=== PATIENT | female | born 1930 | race Caucasian/White ===

== ENCOUNTER 2018-11-20 11:30 | Inpatient (IN) | payer MEDICARE, OTHER ==
[~2018-11-20] VITALS: Ht 152.4 cm; Wt 62.3 kg
[~2018-11-20 11:30] MED LIST: AMARYL2 MG PO; AMIODARONE HCL200 MG PO; FOSINOPRIL SODI10 MG PO; LIPITOR20 MG PO; LISINOPRIL10 MG PO; METOPROLOL SUCC25 MG PO; MONOPRIL PO
--- OUTSIDE RECORDS SUMMARY | 2018-11-20 11:35 | XMS REPORT | Clinical Summary ---
Author Author [employer] [facility] [employer] [facility] Address Unknown Phone Unavailable Care Team Providers Care Butter Maker Name Role Phone Maico Means PCP Allergies Comments Active Allergy Reactions Severity Noted Date Penicillins 11/19/2018 Medications End Date Status Medication Sig Dispensed Refills Start Date Active acetaminophen-codeine Take 1 tablet 15 tablet 0 (TYLENOL #3) 300-30 mg by mouth 9 per tablet every 6 (six) hours as needed for Pain. Max Daily Amount: 4 tablets Active Problems Problem Noted Date Closed fracture of multiple pubic rami 11/19/2018 Encounters Care Team Description Date Type Specialty Tevin Mims DO Alipui Van Lare, Celestine, MD Closed fracture of multiple rami of left pubis, sequela (Primary Dx); Fall, initial encounter; Pain 11/19/2018 Emergency Emergency Medicine after 11/19/2017 Social History Date Tobacco Use Types Packs/Day Years Used Never Smoker Smokeless Tobacco: Never Used Alcohol Use Drinks/Week oz/Week Comments Yes 1 Glasses of 0.6 wine Alcohol Habits Answer Date Recorded How often do you have a drink containing alcohol? Never 11/19/2018 How many drinks containing alcohol do you have on Not asked a typical day when you are drinking? How often do you have six or more drinks on one Not asked occasion? Sex Assigned at Date Recorded Not on file Industry Job Start Date Occupation Not on file Not on file Not on file Travel End Travel History Travel Start No recent travel history available. Last Filed Vital Signs Time Taken Vital Sign Reading 11/19/2018 12:26 PM CDT Blood Pressure 161/70 11/19/2018 12:26 PM CDT Pulse 83 11/19/2018 12:26 PM CDT Temperature 36.6 C (97.9 F) 11/19/2018 12:26 PM CDT Respiratory Rate 16 11/19/2018 12:26 PM CDT Oxygen Saturation 99% - Inhaled Oxygen - Concentration 11/19/2018 12:26 PM CDT Weight 59 kg (130 lb) 11/19/2018 12:26 PM CDT Height 152.4 cm (5') 11/19/2018 12:26 PM CDT Body Mass Index 25.39 Plan of Treatment Not on file Procedures Comments Procedure Name Priority Date/Time Associated Diagnosis CT PELVIS WITHOUT IV STAT 11/19/2018 CONTRAST 3:09 PM CDT XR HIP LEFT 2 VIEW STAT 11/19/2018 1:10 PM CDT after 11/19/2017 Results * CT pelvis without IV contrast (11/19/2018 3:09 PM CDT) Specimen Narrative Performed At FINAL REPORT [employer] CT of the pelvis dated to November 19, 2018 CLINICAL INFORMATION: Fall Comment: Axial images of the pelvis were obtained from the abdomen to the proximal thigh without GI or intravenous contrast. There is minimally displaced fracture involving the left superior pubic ramus extending to to the pubic symphysis. Nondisplaced fracture is also seen in the inferior left pubic ramus. Hematoma is seen in the left pelvis just lateral to the urinary bladder measuring approximately 1.7 x 4 cm. The left femoroacetabular joint is well maintained. Uterus is atrophic. Calcified mass is seen in the left pelvis measuring approximately 2.9 x 5.9 cm suggestive of adenopathy. A 2.2 x 2.7 cm lymph node is seen in the right pelvic sidewall. Atherosclerotic calcification seen in the abdominal aorta and bilateral iliac arteries. Adenopathy is seen in the distal periaortic retroperitoneum measuring up to 1.6 x 2.5 cm. IMPRESSION: 1. Fracture of the left inferior and superior pubic rami. The left superior pubic ramus fracture extending to the left pubic symphysis. 2. Hematoma in the left pelvis adjacent to the left superior and mass fracture. 3. Adenopathy in the pelvis and periaortic retroperitoneum. Signed: Mona Barnes MD Report Verified Date/Time:11/19/2018 16:05:40 Reading Location: [facility] B1 C013Y CT Body Reading Room Procedure Note Interface, External Ris In - 11/19/2018 4:07 PM CDT FINAL REPORT CT of the pelvis dated to November 19, 2018 CLINICAL INFORMATION: Fall Comment: Axial images of the pelvis were obtained from the abdomen to the proximal thigh without GI or intravenous contrast. There is minimally displaced fracture involving the left superior pubic ramus extending to to the pubic symphysis. Nondisplaced fracture is also seen in the inferior left pubic ramus. Hematoma is seen in the left pelvis just lateral to the urinary bladder measuring approximately 1.7 x 4 cm. The left femoroacetabular joint is well maintained. Uterus is atrophic. Calcified mass is seen in the left pelvis measuring approximately 2.9 x 5.9 cm suggestive of adenopathy. A 2.2 x 2.7 cm lymph node is seen in the right pelvic sidewall. Atherosclerotic calcification seen in the abdominal aorta and bilateral iliac arteries. Adenopathy is seen in the distal periaortic retroperitoneum measuring up to 1.6 x 2.5 cm. IMPRESSION: 1. Fracture of the left inferior and superior pubic rami. The left superior pubic ramus fracture extending to the left pubic symphysis. 2. Hematoma in the left pelvis adjacent to the left superior and mass fracture. 3. Adenopathy in the pelvis and periaortic retroperitoneum. Signed: Mona Barnes MD Report Verified Date/Time: 11/19/2018 16:05:40 Reading Location: [facility] C013Y CT Body Reading Room Performing Organization Address City/State/Zipcode Phone Number [phone] RIS * XR hip 2 views left (11/19/2018 1:10 PM CDT) Specimen Narrative Performed At FINAL REPORT [employer] Left hip dated 11/19/2018 Clinical Information: FALL left hip pain Comment: 2 views of the left hip were submitted for interpretation. No fracture, dislocation, or subluxation seen in the left hip. Femoral acetabular joint is well maintained. Soft tissue of the left hip is unremarkable. Curvilinear lucency is seen in the inferior left superior and inferior pubic rami for nondisplaced fracture. Impression: 1. No fracture in the left hip. 2. Findings suspicious for left superior and inferior pubic rami fracture. Recommend clinical correlation or follow-up with the CT examination. Signed: Mona Barnes MD Report Verified Date/Time:11/19/2018 14:41:42 Reading Location: [facility] C013Y CT Body Reading Room Procedure Note Interface, External Ris In - 11/19/2018 2:43 PM CDT FINAL REPORT Left hip dated 11/19/2018 Clinical Information: FALL left hip pain Comment: 2 views of the left hip were submitted for interpretation. No fracture, dislocation, or subluxation seen in the left hip. Femoral acetabular joint is well maintained. Soft tissue of the left hip is unremarkable. Curvilinear lucency is seen in the inferior left superior and inferior pubic rami for nondisplaced fracture. Impression: 1. No fracture in the left hip. 2. Findings suspicious for left superior and inferior pubic rami fracture. Recommend clinical correlation or follow-up with the CT examination. Signed: Mona Barnes MD Report Verified Date/Time: 11/19/2018 14:41:42 Reading Location: [facility] C013Y CT Body Reading Room Performing Organization Address City/State/Zipcode Phone Number RIS after 11/19/2017 Insurance Payer Benefit Subscriber ID Type Phone Address Plan / Group MEDICARE MEDICARE A xxxxxxxxxx Medicare B AETNA - MGD CARE AETNA xxxxxxxxxx Comm INDEMNITY NON CONTR
--- OUTSIDE RECORDS SUMMARY | 2018-11-20 11:35 | XMS REPORT ---
Author Author [facility] Address Unknown Phone Unavailable Care Team Providers Care Checker Cashier Name Role Phone Unavailable Unavailable Problems This patient has no known problems. Allergies, Adverse Reactions, Alerts This patient has no known allergies or adverse reactions. Medications This patient has no known medications. Results Test Description Test Time Test Comments Text Results Atomic Results Result Comments CT, PELVIS, WO CONTRAST 2018-11-19 16:05:00 Reason for exam:->FALLReason for exam:- >suspected occult fracute left hip painWhat is the patient's sedation requirement?->No Sedation FINAL REPORT CT of the pelvis dated [...] measuring up to 1.6 x 2.5 cm. IMPRESSION:1. Fracture of the left inferior and superior pubic rami. The left superior pubic ramus fracture extending to the left pubic symphysis.2. Hematoma in the left pelvis adjacent to the left superior and mass fracture.3. Adenopathy in the pelvis and periaortic retroperitoneum. Signed: Mona Barneseport Verified Date/Time: 11/19/2018 16:05:40 Reading Location: [facility] B1 C013Y CT Body Reading Room , HIP, 2 VIEWS, LEFT 2018-11-19 14:41:00 Reason for exam:->FALLReason for exam:- >left hip pain FINAL REPORT Left hip dated 11/19/2018 Clinical Information: FALLleft hip pain Comment: 2 views of the left hip were submitted for interpretation. No fracture, dislocation, or subluxation seen in the left hip. Femoral acetabular joint is well maintained. Soft tissue of the left hip is unremarkable. Curvilinear lucency is seen in the inferior left superior and inferior pubic rami for nondisplaced fracture. Impression:1. No fracture in the left hip.2. Findings suspicious for left superior and inferior pubic rami fracture. Recommend clinical correlation or follow-up with the CT examination. Signed: Mona Barnes MDReport Verified Date/Time: 11/19/2018 14:41:42 Reading Location: [facility] B1 C013Y CT Body Reading Room
[2018-11-20] MEDS ORDERED: DEXTROSE 50% SYRINGE 50 ML IV PRN (12:45)
[2018-11-20] MEDS ORDERED: MORPHINE SULFATE 2 MG/ML SYR 1ML IV PRN (12:45)
[2018-11-20] MEDS ORDERED: ONDANSETRON HCL INJ 2MG/ML 2ML 2 MG/ML VIAL IV PRN (12:45)
--- OUTSIDE RECORDS SUMMARY | 2018-11-20 13:02 | XMS REPORT | Clinical Summary ---
Author Author [facility] [employer] [facility] [employer] [facility] Address Unknown Phone Unavailable Care Team Providers Care Bottle Gauger Name Role Phone Maico Means PCP Allergies [...] CDT) Specimen Narrative Performed At FINAL REPORT [employer] CT of the pelvis dated to November [...] MD Report Verified Date/Time:11/19/2018 16:05:40 Reading Location: [facility] B1 C[facility] Body Reading Room Procedure [...] Report Verified Date/Time: 11/19/2018 16:05:40 Reading Location: [facility] C013Y CT Body Reading Room Performing Organization Address City/State/Zipcode Phone Number [employer] RIS * XR hip 2 views left (11/19/2018 1:10 PM CDT) Specimen Narrative Performed At FINAL REPORT [employer] Left hip dated 11/19/2018 Clinical Information: FALL [...] MD Report Verified Date/Time:11/19/2018 14:41:42 Reading Location: [facility] C013Y CT Body Reading Room Procedure Note [...] Report Verified Date/Time: 11/19/2018 14:41:42 Reading Location: [facility] C013Y CT Body Reading Room Performing Organization Address City/State/Zipcode Phone Number RIS after 11/19/2017 Insurance Payer Benefit Subscriber ID Type Phone Address Plan / Group MEDICARE MEDICARE A xxxxxxxxxx Medicare B AETNA - MGD CARE AETNA xxxxxxxxxx Comm INDEMNITY NON CONTR
[2018-11-20] MEDS ORDERED: MORPHINE SULFATE INJ 4 MG/ML INJ 1ML IV PRN (13:15)
[2018-11-20 13:19] LABS: BASOPHILS % 0.5 % (0.0-1.0); EOSINOPHILS % 0.5 % (0.0-6.0); HEMATOCRIT 28.2 % (34.2-44.1); HEMOGLOBIN 9.1 g/dL (12.0-16.0); LYMPHOCYTES # (AUTO) 1.3 (1.0-3.2); LYMPHOCYTES % 30.7 % (18.0-39.1); MEAN CORPUSCULAR HEMOGLOBIN 29.9 pg (28-32); MEAN CORPUSCULAR HGB CONC 32.3 g/dL (31-35); MEAN CORPUSCULAR VOLUME 92.8 fL (81-99); MONOCYTES # (AUTO) 0.5 (0.2-0.8); MONOCYTES % 10.3 % (4.4-11.3); NEUTROPHILS # (AUTO) 2.5 (2.1-6.9); NEUTROPHILS % 57.8 % (38.7-80.0); PLATELET COUNT 243 x10e3/uL (140-360); RED BLOOD COUNT 3.04 x10e6/uL (3.6-5.1); RED CELL DISTRIBUTION WIDTH 14.2 % (11.7-14.4)
[2018-11-20] MEDS ORDERED: LOW DOSE ASPIRI81 MG PO (13:24)
[2018-11-20] MEDS ORDERED: TYLENOL # 31 EA PO (13:24)
[2018-11-20 13:32] LABS: ALBUMIN/GLOBULIN RATIO 0.5 (0.8-2.0); ANION GAP 10.7 mmol/L (8-16); CALCIUM 9.7 mg/dL (8.4-10.2); CREATININE, SERUM 1.45 mg/dL (0.57-1.11); MAGNESIUM 1.7 MG/DL (1.3-2.1); POTASSIUM 4.7 mmol/L (3.5-5.1)
[2018-11-20 14:28] LABS: BILIRUBIN,URINE NEGATIVE (NEGATIVE); CLARITY,URINE CLEAR (CLEAR); COLOR,URINE YELLOW (YELLOW); KETONES,URINE NEGATIVE (NEGATIVE); LEUKOCYTE ESTERASE ,URINE TRACE (NEGATIVE); NITRITE,URINE NEGATIVE (NEGATIVE); PROTEIN,URINE DIPSTICK NEGATIVE (NEGATIVE); URINE UROBILINOGEN 0.2 mg/dL (0.2 - 1)
[2018-11-20 14:38] LABS: BACTERIA,URINE FEW /HPF; EPITHELIAL CELLS,URINE RARE /LPF; WBC,URINE (MAN) 0-5 /HPF (0-5)
[2018-11-20] MEDS: INSULIN LISPRO 100 UNIT/1 ML 3ML VIAL SQ SCH ×2 (16:22→21:00)
[2018-11-20 16:55] VITALS: BP 148/68
[2018-11-20] MEDS ORDERED: PNEUMOCOCCAL VACCINE POLYVALENT 23 MCG/0.5 ML VIAL IM SCH (17:27)
[2018-11-20 17:35] VITALS: BP 131/55
--- NOTE | 2018-11-20 19:00 | NUR ---
patient received awake, alert, lying quietly in bed. no c/o pain noted. patient repositioned for comfort. pm assessment complete. call perez placed within reach. patient instructed to call for assistance when needed.
--- NOTE | 2018-11-20 19:01 | NUR ---
CALLED ANSWERING SERVICE FOR [facility] TO VERIFY THAT HE WAS NOTIFIED FOR THE CONSULT, ANSWERING SERVICE STATED THAT THE PHYSICIAN SAW THE IN ER.
[2018-11-20 19:30] VITALS: BP 138/63
[2018-11-20 19:52] VITALS: BP 138/63
[2018-11-21] VITALS (8 sets, daily range): BP systolic 107–153; BP diastolic 53–68
--- NOTE | 2018-11-21 | NUR ---
patient able to turn and reposition herself. no c/o pain noted. purewhick remains in place.
[2018-11-21] MEDS: ACETAMINOPHEN 325 MG TAB PO PRN ×2 (04:00→22:58)
--- NOTE | 2018-11-21 04:00 | NUR ---
patient medicated with tylenol 650 mg po for c/o mild pain to left hip at this time.
[2018-11-21] MEDS ORDERED: ACETAMINOPHEN/CODEINE 300MG - 30MG TAB PO PRN (04:45)
--- NOTE | 2018-11-21 07:14 | NUR ---
pt alert resp even and unlabored at this time no distress noted, pt able to make needs known, no concerns voiced at this time, call light in reach.
[2018-11-21] MEDS: INSULIN LISPRO 100 UNIT/1 ML 3ML VIAL SQ SCH ×4 (07:30→20:14)
[2018-11-21] MEDS ORDERED: ASPIRIN 325 MG TAB PO SCH (09:00)
[2018-11-21] MEDS: ATORVASTATIN 20 MG TAB PO SCH (09:02)
[2018-11-21] MEDS: LISINOPRIL 10 MG TAB PO SCH (09:03)
[2018-11-21] MEDS: METOPROLOL SUCCINATE 25 MG TAB XL PO SCH (09:03)
--- NOTE | 2018-11-21 11:36 | NUR ---
pt up with PT walked 20 ft as stated to me by Aris, than to bedside recliner. call light in reach
[2018-11-21] MEDS ORDERED: ONDANSETRON HCL 4 MG ORAL DISINTEGRATING TAB PO PRN (15:30)
--- NOTE | 2018-11-21 15:50 | NUR ---
Visit made by the Spiritual Care Department Pastoral Visitor, Veronica Zavaleta. PV provided pastoral presence, prayer, hospitality, and supportive listening. Pastoral Visitor informed pt/family of the scope of [employer] and availability. JOHNNIE ONEILL Despatch Clerk Spiritual Care Department O: [phone] Pager: [phone] ([phone] number calling from)
--- NOTE | 2018-11-21 19:00 | NUR ---
patient received awake, alert, lying quietly in bed. no c/o pain noted. pm assessment complete. patient instructed to call for assistance when needed.
--- NOTE | 2018-11-21 19:00 | NUR ---
report given to oncoming nurse,for continued care.
--- NOTE | 2018-11-21 22:58 | NUR ---
patient oob to bathroom with assistance. patient voids without difficulty. patient medicated with tylenol 650 mg po for c/o left groin pain 5/ at this time.
[2018-11-22] VITALS (8 sets, daily range): BP systolic 111–129; BP diastolic 56–62
--- NOTE | 2018-11-22 06:54 | NUR ---
RECEIVED PATIENT RESTING IN BED, NO ACUTE DISTRESS NOTED. NO S/S OF PAIN NOTED AT THIS TIME. CALL LIGHT WITHIN REACH. BED IN THE LOWEST POSITION.
[2018-11-22] MEDS: INSULIN LISPRO 100 UNIT/1 ML 3ML VIAL SQ SCH ×4 (07:30→20:10)
[2018-11-22] MEDS: ASPIRIN 81 MG ENTERIC COATED PO SCH (09:12)
[2018-11-22] MEDS: ATORVASTATIN 20 MG TAB PO SCH (09:12)
[2018-11-22] MEDS: LISINOPRIL 10 MG TAB PO SCH (09:13)
[2018-11-22] MEDS: METOPROLOL SUCCINATE 25 MG TAB XL PO SCH (09:13)
--- NOTE | 2018-11-22 13:46 | NUR ---
CASE MANAGEMENT INITIAL ASSESSMENT Splicer Apprentice to bedside to discuss plan of care with patient/family. CM/SW role and care transitions discussed. Anticipated discharge plan discussed along with duration of care. CM/SW discussed patients right to make decisions in care. CM/SW work hours given. Patient lives: ALONE IN [facility] HOME Admit/Transfer: ER Hospital/ER visits since last admit: FELL AT [facility] LAST WEEK POA/Emergency contact: YOVANI MADDOX / SON [phone] Current/Previous Home Health: NONE PCP/Follow-up Care: GRACIELA Current/Previous DME: NONE Other Services: NONE Employment Status: RETIRED Areas of Concerns: NEEDS REHAB FOR FX PELVIS Referral Needs: SNF Education Needs: NONE IMM/LYNNE given and signed (if applicable): IMM LETTER EXPLAINED AND SIGNED BY PT. Goal for discharge: SNF FOR REHAB AND PAIN MGMT CM/SW left business card at the bedside with contact information. Name and number was also written on the patients whiteboard. Patient verbalized understanding of discussion. CM will follow-up with ongoing discharge and transition of care needs.
--- NOTE | 2018-11-22 13:55 | NUR ---
TAZ MET W THE PT AT THE BEDSIDE FOR DC PLANNING. STATES SHE WAS TOLD SHE WOULD BE GOING TO A REHAB TO GET BETTER. CM INFORMED PT THERE WAS NO ORDER FOR REHAB. STATES DR. OWENS AND AMBROSIO BOTH SAID SHE WOULD BE GOING TO A FACILITY FOR REHAB. CM PLACED CALL TO DR. OWENS. DR. OWENS STATES THE ER DOC SAID THE ORDER WAS PLACED FOR SNF EVAL. OK WAS GIVEN TO ORDER SNF EVAL AND TRANSFER WHEN READY. TAZ MET W THE PT FOR CHOICE. STATES SHE WOULD LIKE TO GO TO A FACILITY NEAR THE HOSPITAL. PT CHOSE [facility]. CALL WAS PLACED TO MAX [facility]BOSA [facility] @ [phone]. STATES SHE WILL P/U CLINICALS SHORTLY.
--- NOTE | 2018-11-22 16:19 | NUR ---
PT NEEDS 23 MIDNIGHTS IN FACILITY TO QUALIFY FOR MEDICARE 3 MIDNIGHT RULE, WILL DISCHARGE TO [facility] BAY ARE 1ST THING IN AM TO ROOM [address] RADHA PORTER. CALL REPORT TO [phone]
--- NOTE | 2018-11-22 19:09 | NUR ---
REPORT GIVEN TO ONCOMING NURSE, PATIENT IS RESTING IN BED. NO ACUTE DISTRESS NOTED. NO S/S OF PAIN NOTED. CALL LIGHT WITHIN REACH. BED IN THE LOWEST POSITION.
--- NOTE | 2018-11-22 19:10 | NUR ---
patient received awake, lying quietly in bed. no c/o pain noted. respirations even and unlabored. pm assessment complete. call perez placed within reach. patient instructed to call for assistance when needed.
[2018-11-23 00:23] VITALS: BP 104/54
[2018-11-23 04:12] VITALS: BP 110/54
--- NOTE | 2018-11-23 05:28 | NUR ---
here to see patient. patient to transfer to [facility] this am. patient verbalizes understanding of this.
--- NOTE | 2018-11-23 06:56 | NUR ---
RECEIVED PATIENT RESTING IN BED, NO ACUTE DISTRESS NOTED, RESPIRATIONS EVEN AND UNLABORED. CALL LIGHT WITHIN REACH. BED IN THE LOWEST POSITION.
[2018-11-23 07:10] VITALS: BP 116/56
[2018-11-23] MEDS: INSULIN LISPRO 100 UNIT/1 ML 3ML VIAL SQ SCH (07:30)
[2018-11-23 08:00] VITALS: BP 116/56
[2018-11-23] MEDS: LISINOPRIL 10 MG TAB PO SCH (08:51)
[2018-11-23] MEDS: ASPIRIN 81 MG ENTERIC COATED PO SCH (08:51)
[2018-11-23] MEDS: ATORVASTATIN 20 MG TAB PO SCH (08:51)
[2018-11-23] MEDS: METOPROLOL SUCCINATE 25 MG TAB XL PO SCH (08:52)
--- NOTE | 2018-11-23 09:18 | NUR ---
CALLED REPORT TO PAT BARRAZA AT THE [facility] AT THIS TIME. PER NURSE TO LEAVE IN IV ACCESS AND TO FAX MEDICATION LIST BEFORE PATIENT ARRIVES. Addendum: 11/23/18 at 1030 by DELILAH ANTUNEZ RN NURSE NAME IS FARIHA BARRAZA
--- NOTE | 2018-11-23 09:28 | NUR ---
FAXED MEDICATION LIST TO PAT BARRAZA AT THIS TIME. Addendum: 11/23/18 at 1030 by DELILAH ANTUNEZ RN PAT FRIED
--- NOTE | 2018-11-23 10:34 | NUR ---
DC ORDER RECEIVED FROM MD FOR PATIENT TO BE TRANSFERRED TO [facility]. PATIENT IS IN STABLE CONDITION. DENIES PAIN OR DISCOMFORT. IV LINE LEFT IN PLACE PER NURSE REQUEST AT [facility]. ALL TRANSFER PAPERWORK GIVEN TO EMS PERSONNEL. REPORT CALLED TO PAT FRIED AT [id number]. PATIENT IS BEING TRANSPORTED VIA EMS. ALL PERSONAL ITEMS ON HAND.
--- NOTE | 2018-11-23 11:41 | Discharge Summary ---
DISCHARGE DIAGNOSES: 1. Pelvic fracture. 2. Intractable pain. 3. Hypertension. 4. History of peritoneal carcinoma. 5. Hyperlipidemia. 6. Chronic kidney disease, stage 3. 7. Anemia, secondary to chronic kidney disease. DISPOSITION: [facility]. HISTORY OF PRESENT ILLNESS AND HOSPITAL COURSE: The patient is an 87-year-old lady, who unfortunately fell, sustaining a pelvic fracture of the pubic ramus and unfortunately due to intractable pain, she is being admitted for evaluation and care. The patient was given pain medication control as well as continuation of home medication. She had prison evaluation placed, who accepted her. The patient was then transferred to prison for continued therapy as well as pain control and once she is up ambulatory and independent, the patient will be transferred back home. Please see hospital chart for full details. MD SUSANA Hutchison/ALLA /[id number]
== END 2018-11-23 10:37 | DRG 948 ==
LOC: ER 11:30 → ERHOLD 12:59 → MED/SURG3 17:00
PROVIDERS: ADMIT Internal Medicine; ATTEND Internal Medicine
DX: G89.11 Acute pain due to trauma (principal); S32.592A Other specified fracture of left pubis, initial encounter for closed fracture; Z85.89 Personal history of malignant neoplasm of other organs and systems; Z82.49 Family history of ischemic heart disease and other diseases of the circulatory system; W10.9XXA Fall (on) (from) unspecified stairs and steps, initial encounter; E11.22 Type 2 diabetes mellitus with diabetic chronic kidney disease; I12.9 Hypertensive chronic kidney disease with stage 1 through stage 4 chronic kidney disease, or unspecified chronic kidney disease; N18.3 Chronic kidney disease, stage 3 (moderate); Z88.0 Allergy status to penicillin; E78.5 Hyperlipidemia, unspecified; Y92.019 Unspecified place in single-family (private) house as the place of occurrence of the external cause; D63.1 Anemia in chronic kidney disease; Z79.82 Long term (current) use of aspirin
CPT/HCPCS: 36415; 80053; 81001; 82948; 83735; 85025; 87086; 99284

== ENCOUNTER → 2019-04-06 | Outpatient (CLI) | payer MEDICARE, OTHER ==
[~2019-04-06] MED LIST changes: +LOW DOSE ASPIRI81 MG PO; +TYLENOL # 31 EA PO
== END ==
LOC: RAD 13:50
PROVIDERS: ATTEND Internal Medicine
DX: R60.0 Localized edema (principal)
CPT/HCPCS: 93971